=== PATIENT | female | born 1995 | race Caucasian/White ===

== ENCOUNTER 2017-01-01 18:00 | Emergency (ER) | payer OTHER ==
[~2017-01-01] VITALS: Ht 172.7 cm; Wt 65.6 kg
[2017-01-01 20:55] LABS: HEMATOCRIT 37.9 % (36.0-46.0); MCH 33.6 PG (29.0-34.0); MCHC 34.6 G/DL (30.0-36.0); MCV 97.2 FL (83-99); PLATELET COUNT 212 K/uL (156-360); RBC DIS.WIDTH-SD 42.6 % (39-53); WHITE BLOOD COUNT 11.4 K/uL (4.1-10.2)
[2017-01-01 21:05] LABS: CHLORIDE 108 mEq/L (99-109); POTASSIUM 3.9 mEq/L (3.7-5.4); SODIUM 138 mEq/L (136-147)
[2017-01-01 21:08] LABS: GLUCOSE 101 mg/dL (70-99)
[2017-01-01 21:09] LABS: ANION GAP 9 MEQ/L (2-14); TOTAL BILIRUBIN 0.5 mg/dL (0.0-1.0)
[2017-01-01 21:11] LABS: ALKALINE PHOSPHATASE 52 IU/L (3-129); GFR ESTIMATE (CALCULATED) > 59 mL/min/
[2017-01-01 21:12] LABS: UREA NITROGEN (BUN) 7 mg/dL (9-23)
[2017-01-01 21:15] LABS: LIPASE 10 U/L (1.0-51.0)
[2017-01-01 21:46] LABS: QUANTITATIVE HCG < 4.0 MIU/ML
[2017-01-02 00:25] VITALS: BP 124/84
== END 2017-01-02 00:27 | disposition home or self-care (01) ==
LOC: EME 18:00
PROVIDERS: Physician Assistant
DX: S30.1XXA Contusion of abdominal wall, initial encounter (principal); S39.012A Strain of muscle, fascia and tendon of lower back, initial encounter; M79.641 Pain in right hand; V49.49XA Driver injured in collision with other motor vehicles in traffic accident, initial encounter
CPT/HCPCS: 71020; 73130; 74177; 80053; 83690; 84702; 85027; 99281; 99284